=== PATIENT | male | born 1965 | race Caucasian/White ===

== ENCOUNTER 2023-05-22 14:35 | Inpatient (IN) | payer BC, SELFPAY ==
[2023-05-22 11:24] VITALS: BP 118/94
--- NOTE | 2023-05-22 11:28 | ED.GENMED ---
History of Present Illness
<Maria Isabel Mansfield PA-C - Last Filed: 05/22/23 15:07>
General
Chief Complaint: Abdominal Pain
Source: patient
Exam Limitations: none
Time Seen by Provider: 05/22/23 11:28
Nursing documentation reviewed up to this point in time: agreed with
Travel History
Have you had any contact with someone who has COVID-19?: No
Do you have any symptoms of coronavirus? Fever > 100 degrees, chills, cough, shortness of breath, sore throat, loss of taste or smell, muscle aches, or headache?: No
History of Present Illness
History of Present Illness:
This is a 57 y/o male with a PMH of cholelithiasis presenting to the ER today with diffuse abdominal pain and yellowing of the skin for the past 6 days. Patient states that he first noticed the pain after eating a meal. Patient states that he
currently has no pain, however he does get a lot of pain with eating which she states will linger for hours. Patient states that the pain will come very severe at times. Patient has associated nausea with this. He had a few episodes of vomiting 3
days ago. He has no diarrhea, no constipation, no chest pain, no shortness of breath, no back pain. Patient no history of abdominal surgeries. Patient denies any fevers or chills. His partner present in the room with him noticed that his skin
had a yellow hue starting yesterday. Patient takes no medications daily, has no allergies to any medications.
Past History
<Maria Isabel Mansfield PA-C - Last Filed: 05/22/23 15:07>
Past History
ED Past Medical History: None
ED Past Surgical History: None
Social History
Tobacco: Smoker
Review of Systems
<Maria Isabel Mansfield PA-C - Last Filed: 05/22/23 15:07>
Review of Systems
All Other Systems: ROS reviewed and negative except as documented in HPI and ROS
Phy Exam
<Maria Isabel Mansfield PA-C - Last Filed: 05/22/23 15:07>
Physical Exam
Physical Exam:
Vitals: Patient is tachycardic, other vital vital signs are stable
General: Patient is well-appearing, no acute
Skin: Jaundice, warm and dry, no rashes or lesions
Head: Normocephalic, atraumatic
Eyes: Scleral icterus noted bilaterally, PERRLA, no nystagmus
Cardiac: Regular rate and rhythm
Course
<Maria Isabel Mansfield PA-C - Last Filed: 05/22/23 15:07>
Orders/Labs/Results
Orders:
Orders
05/22/23 11:34
IV Insert/Care/Rem.- Treatment NOW
05/22/23 11:40
Complete Blood Count/With Diff Urgent
Comprehensive Metabolic Panel Urgent
Lipase Urgent
05/22/23 11:45
0.9% Sodium Chloride 1000 ml [Nss] 1,000 ml IV BOLUS
Ondansetron Injectable [Zofran] 4 mg IV NOW STA
05/22/23 11:54
US Abdomen Complete/Upper Urgent
Reason For Exam: right upper quadrant
05/22/23 11:56
Add On- LAB Urgent
Tests Added?: PT/INR
05/22/23 11:57
Add On- LAB Urgent
Tests Added?: PTT
05/22/23 12:07
PTT Routine
Comment: NO SPECIMEN TO ADD ON TO
Prothrombin Time Routine
Comment: PLEASE DRAW; NO LT BLUE TOP SPECIMEN TO ADD ON TO
05/22/23 14:23
Admit/Transfer Patient As Directed
Co-Sign Provider:
Level of Care: Inpatient admission
Assign to:: Telemetry
Physician / Group: Dr Palmer
Diagnosis: Gallstone pancreatitis
Reason for Telemetry: Arrhythmia
Date to Stop Telemetry: 05/25/23
Time to Stop Telemetry: 11:00
Reason for Hospitalization: pte p/w abd pain and elevated lft and lipase
Expected length of stay greater than two midnights?: Yes
ELOS- Estimated Length of Stay in days: 2
I certify the patient meets the requirements for IP care: Yes
05/22/23 14:24
Code Status As Directed
Resuscitation Status: Full Code
05/25/23 11:00
DC Protocol for Telemetry ONCE
Abnormal Lab Results
05/22/23
11:40
MPV 10.8 H fL
(7.4-10.4)
Abs Immat Gran (auto) 0.1 H 10^3/uL
(0-0.05)
Immature Gran % 0.7 H %
(0-0.5)
Lymphocytes % 19.7 L %
(20.5-51.1)
Carbon Dioxide 21 L mmol/L
(22-30)
Glucose 115 H mg/dl
(70-99)
Total Bilirubin 7.7 H mg/dl
(0.2-1.3)
AST 195 H U/L
(17-59)
ALT 237 H U/L
(0-50)
Alkaline Phosphatase 230 H U/L
(38-126)
Lipase 1664 H* U/L
(23-300)
05/22/23 11:40
05/22/23 11:40
Vital Signs
Initial and Last Documented VS:
Initial Vital Signs
Temp Pulse Resp BP Pulse Ox
98.2 F 114 16 118/94 97
05/22/23 11:24 05/22/23 11:24 05/22/23 11:24 05/22/23 11:24 05/22/23 11:24
Last Documented Vital Signs
Temp Pulse Resp BP Pulse Ox
98.2 F 84 19 121/76 95
05/22/23 11:24 05/22/23 12:15 05/22/23 12:15 05/22/23 12:00 05/22/23 12:15
<Kale Calvin, DO - Last Filed: 05/22/23 11:58>
Orders/Labs/Results
Orders:
Orders
05/22/23 11:34
IV Insert/Care/Rem.- Treatment NOW
05/22/23 11:40
Complete Blood Count/With Diff Urgent
Comprehensive Metabolic Panel Urgent
Lipase Urgent
05/22/23 11:45
0.9% Sodium Chloride 1000 ml [Nss] 1,000 ml IV BOLUS
Ondansetron Injectable [Zofran] 4 mg IV NOW STA
05/22/23 11:54
US Abdomen Complete/Upper Urgent
Reason For Exam: right upper quadrant
05/22/23 11:56
Add On- LAB Urgent
Tests Added?: PT/INR
05/22/23 11:57
Add On- LAB Urgent
Tests Added?: PTT
05/22/23 12:07
PTT Routine
Comment: NO SPECIMEN TO ADD ON TO
Prothrombin Time Routine
Comment: PLEASE DRAW; NO LT BLUE TOP SPECIMEN TO ADD ON TO
05/22/23 14:23
Admit/Transfer Patient As Directed
Co-Sign Provider:
Level of Care: Inpatient admission
Assign to:: Telemetry
Physician / Group: Dr Palmer
Diagnosis: Gallstone pancreatitis
Reason for Telemetry: Arrhythmia
Date to Stop Telemetry: 05/25/23
Time to Stop Telemetry: 11:00
Reason for Hospitalization: pte p/w abd pain and elevated lft and lipase
Expected length of stay greater than two midnights?: Yes
ELOS- Estimated Length of Stay in days: 2
I certify the patient meets the requirements for IP care: Yes
05/22/23 14:24
Code Status As Directed
Resuscitation Status: Full Code
05/25/23 11:00
DC Protocol for Telemetry ONCE
Abnormal Lab Results
05/22/23
11:40
MPV 10.8 H fL
(7.4-10.4)
Abs Immat Gran (auto) 0.1 H 10^3/uL
(0-0.05)
Immature Gran % 0.7 H %
(0-0.5)
Lymphocytes % 19.7 L %
(20.5-51.1)
Carbon Dioxide 21 L mmol/L
(22-30)
Glucose 115 H mg/dl
(70-99)
Total Bilirubin 7.7 H mg/dl
(0.2-1.3)
AST 195 H U/L
(17-59)
ALT 237 H U/L
(0-50)
Alkaline Phosphatase 230 H U/L
(38-126)
Lipase 1664 H* U/L
(23-300)
05/22/23 11:40
05/22/23 11:40
Vital Signs
Initial and Last Documented VS:
Initial Vital Signs
Temp Pulse Resp BP Pulse Ox
98.2 F 114 16 118/94 97
05/22/23 11:24 05/22/23 11:24 05/22/23 11:24 05/22/23 11:24 05/22/23 11:24
Last Documented Vital Signs
Temp Pulse Resp BP Pulse Ox
98.2 F 84 19 121/76 95
05/22/23 11:24 05/22/23 12:15 05/22/23 12:15 05/22/23 12:00 05/22/23 12:15
<Maria Isabel Mansfield PA-C - Last Filed: 05/22/23 15:07>
MDM/Problems Addressed
Differential Diagnosis Includes:
Differentials include choledocholithiasis, cholecystitis, gallstone pancreatitis, hemolytic anemia
MDM/Problems Addressed:
Abdominal pain, jaundice
Chronic conditions affecting care:
n/a
Acute Exacerbation and/or Progression of Chronic Illness:
n/a
<DWAYNE Geller Last Filed: 05/22/23 15:07>
*Pulse Oximetry
Patient hypoxic: no
*Critical Care Note
Total Time (30-74mins, 75-104mins- exclusive of procedures): Not Applicable
Data Reviewed
Review of Other/Old Records Reveals: Records (Reviewed ER physician documentation from 12/31/2022) and Discharge Summary (No hospital discharge summary in [facility] to review)
Source: patient and records
Prescriptions/Medications Considered But Not Given:
Considered occasion for pain, however patient has no pain at this time and denies any medication
<DWAYNE Geller Last Filed: 05/22/23 15:07>
Patient Management
Escalation/DeEscalation of care consider admission/obs:
This is a 57 y/o male with a PMH of cholelithiasis presenting to the ER today with diffuse abdominal pain and yellowing of the skin for the past 6 days. Patient states that he first noticed the pain after eating a meal. On exam, patient has some
mild abdominal tenderness palpation in the lower abdominal quadrants, as well as mild jaundice and scleral icterus. Patient labs reveal elevated LFTs, elevated lipase, elevated bili. His ultrasound reveals gallbladder stones, but no common bile
duct stones. Suspect patient has a gallstone pancreatitis.
Admit patient to the hospitalist. Patient accepted by hospitalist, patient aware of plan.
ED Attending Note
<Maria Isabel Mansfield PA-C - Last Filed: 05/22/23 15:07>
-
Portions of this chart may have been created with voice recognition software.� Occasional wrong word or��sound alike� substitutions may have occurred due to the inherent limitations of voice recognition software.
<Kale Calvin DO - Last Filed: 05/22/23 11:58>
ED Attending Note
Patient seen and examined by attending physician: Yes
I performed the substantive portion of visit, reviewed & personally made and approve the management plan that is documented in note by myself or BRO.: Yes
ED Attending Note:
I have seen and evaluated the patient with a [id number] encounter. I have spoken to the advance practicer provider and involved in the medical history, the physical exam, medical decision making.
Evaluation and management service: agree unless noted differently below.
Results interpretation: agree unless noted differently below.
Focused HPI: 57-year-old male presenting with jaundice since Saturday. Patient acknowledges that he has a history of gallstones. He was supposed to follow-up with surgery but never did. Patient complains of pain when he eats
Physical exam: Sitting in bed comfortably. Mild jaundice noted. No significant abdominal tenderness noted
Medical Decision Making: Given his history, discussed the concern for possible common bile duct stone. Will repeat ultrasound and ultimately admit for ERCP versus MRCP
Discharge Plan
Departure
Patient Disposition: Admit
Date of Disposition: 05/22/23
Time of Disposition: 13:35
Presentation/result/management discussed w/ accepting MD/DO: Hospitalist
Condition: Fair
Discharge Problem:
Gallstone pancreatitis
Interventions
Interventions:
*Risk Screen - Suicide Last Done: 05/22/23 11:24
*General Assessment Last Done: 05/22/23 11:24
*Neglect/Abuse Screening Last Done: 05/22/23 11:24
ED- Fall Risk Assessment Last Done: 05/22/23 12:00
UQ-Nagens-Rcaefitzwt Assessment Last Done: 05/22/23 12:00
[2023-05-22 11:47] VITALS: BP 127/80
[2023-05-22] MEDS: NSS 1000 IV (11:50)
[2023-05-22] MEDS: ZOFRAN 4 MG IV (11:55)
[2023-05-22 12:00] VITALS: BP 121/76
[2023-05-22 12:05] LABS: % Basophils 0.4 % (0-2); % Eosinophils 3.3 % (0-6); % Immature Granulocytes 0.7 % (0-0.5); % Lymphocytes 19.7 % (20.5-51.1); % Monocytes 6.5 % (1.7-9.3); % Neutrophils 69.4 % (42.2-75.2); Absolute Eosinophils 0.2 10^3/uL (0-0.7); Absolute Immature Granulocytes 0.1 10^3/uL (0-0.05); Absolute Lymphocytes 1.4 10^3/uL (1.2-3.4); Absolute Monocytes 0.5 10^3/uL (0.1-0.6); Hematocrit 42.5 % (39.0-52.0); Hemoglobin 14.8 g/dL (13.0-18.0); Mean Corp Hgb Conc. 34.8 g/dL (33.0-37.0); Mean Corpuscular Hgb 29.7 pg (27.0-31.0); Mean Corpuscular Volume 85.3 fL (80.0-94.0); Mean Platelet Volume 10.8 fL (7.4-10.4); Nucleated Red Blood Cells % 0 % (-); Platelet Count 218 10^3/uL (130-400); Red Blood Cell Count 4.98 10^6/uL (4.70-6.10); Red Cell Dist. Width 13.9 % (11.5-14.5); White Blood Cell Count 7.3 10^3/uL (4.8-10.8)
[2023-05-22 12:35] LABS: APTT 30.7 Sec (23.4-35.0); INR 0.99; PT 13.1 Sec (11.4-14.6)
[2023-05-22 12:43] LABS: ALT (SGPT) 237 U/L (0-50); AST (SGOT) 195 U/L (17-59); Albumin 4.1 g/dl (3.5-5.0); Alkaline Phosphatase 230 U/L (38-126); Blood Urea Nitrogen 20 mg/dl (9-20); Calcium 9.5 mg/dl (8.4-10.2); Carbon Dioxide 21 mmol/L (22-30); Chloride 103 mmol/L (98-107); Glucose 115 mg/dl (70-99); Lipase 1664 U/L (23-300); Sodium 135 mmol/L (135-145); Total Bilirubin 7.7 mg/dl (0.2-1.3); Total Protein 7.1 g/dl (6.3-8.2); eGFR > 60.00
--- NOTE | 2023-05-22 13:56 | HPS.HSE ---
Family Physician
-
Family Physician: Mike Singh
Chief Complaint
-
Abdominal pain
History of Present Illness
Patient 57-year-old male with no significant past medical history except for cholelithiasis, smoker, came into the hospital with abdominal pain. Patient has been having intermittent abdominal pain for several months but over the last several days
abdominal pain has been more intense and frequent. Patient describes abdominal pain moderate intensity associated with ingesting of meals associated with nausea and vomiting. He ate last evening around 6 PM and he has significant discomfort but
today he has avoided eating. He currently does not have abdominal pain in the ER. He does feel abdominal distention. He denies any change in bowel habits chest pain or shortness of breath. Denies any fevers or chills. He did notice that he has
been more yellowish in his skin. In the ED, LFTs elevated and lipase 1664, and ultrasound with foci of increased echogenicity in the gallstone with multiple gallstones and possible sludge. Gallstone appears thickened but negative sonographic
Weathers sign. He was referred to hospitalist for further evaluation.
Medical History
Past Medical History
Past Medical History: Reports Other (Cholelithiasis.)
Past Surgical History: Reports None
Social History
Tobacco: Smoker
Alcohol: Occasional
Drug: None
Family History
Family History: Not pertinent
Allergies / Home Medications
Allergies reflects when Allergies were last updated in [facility].
Home Medications with original date entered in [facility]
Allergy/Medication List:
Allergies
Allergy/AdvReac Type Severity Reaction Status Date / Time
No Known Allergies Allergy Verified 05/22/23 11:23
Home Medications
No Meds [No Current Medications] 05/22/23
Review of Systems
-
A 12 point ROS was completed and negative except as noted: Yes
Physical Exam
Vital Signs
Vital Signs
Temp Pulse Resp BP Pulse Ox
98.2 F 84 19 121/76 95
05/22/23 11:24 05/22/23 12:15 05/22/23 12:15 05/22/23 12:00 05/22/23 12:15
Physical exam:
General: Acutely ill
HEENT: Normocephalic, Atraumatic and Moist Mucous Membranes
Respiratory: Clear to Auscultation; Negative Wheezes, Rales or Rhonchi
Cardiac: Regular Rhythm and S1/S2
GI: Soft, mild tender on deep palpation, and distended. No rebound tenderness
Musculoskeletal: No Clubbing, No Cyanosis and No Edema
Neuro: Awake, Alert and Oriented
Psych: Calm
Physical Exam
General: Other
Laboratory Results
-
05/22/23 11:40
05/22/23 11:40
Laboratory Results
PT 13.1 Sec (11.4-14.6) 05/22/23 12:07
INR 0.99 05/22/23 12:07
APTT 30.7 Sec (23.4-35.0) 05/22/23 12:07
Total Bilirubin 7.7 mg/dl (0.2-1.3) H 05/22/23 11:40
AST 195 U/L (17-59) H 05/22/23 11:40
ALT 237 U/L (0-50) H 05/22/23 11:40
Alkaline Phosphatase 230 U/L (38-126) H 05/22/23 11:40
Lipase 1664 U/L (23-300) H* 05/22/23 11:40
Impression/Plan
-
IMPRESSION:
Patient 57-year-old male came into the hospital abdominal pain associated with increased LFTs and lipase consistent with acute gallstone pancreatitis. Patient at increased risk of morbidity and mortality therefore he will need to be treated in the
hospital and monitor progress accordingly.
Acute gallstone pancreatitis
Symptomatic cholelithiasis
Transaminitis
Smoker
PLAN:
Aggressive IV hydration, lactated Ringer at 150 mL/h
Pain control
Antiemetics as needed
Follow-up trend LFTs and lipase
Hold off on antibiotics but consider to start if fever or any signs of infection.
Surgery consulted ([place] texted surgery today)
GI consulted ([place] texted GI today)
I offered nicotine patch but patient declines.
Lovenox for DVT prophylaxis
CODE STATUS full code
Time spent 55 minutes.
[2023-05-22 15:30] VITALS: BP 132/85; BMI 31.4
--- NOTE | 2023-05-22 16:58 | CON.GI ---
Consultation
-
Date/Time Consultation Requested: 05/22/2023
Date/Time Consultation Performed: 05/22/2023
Performing Provider: Govind Gaytan
Reason for Consultation: cholelithiasis, elevated LFT
Medical History
Chief Complaint / HPI
Chief Complaint: cholelithiasis, elevated LFT
History of Present Illness:
The patient 57-year-old male with h/o cholelithiasis who p/w abdominal pain. He had significant abdominal pain associated with nausea/vomiting after eating today. He presented previously (about 6 months ago) with similar symptoms and was found to
have biliary pain. He currently does not have abdominal pain. He does feel abdominal distention. He denies any change in bowel habits chest pain or shortness of breath. Denies any fevers or chills. He did notice that he has been more yellowish
in his skin. In the ED, LFTs elevated and lipase 1664, and ultrasound with foci of increased echogenicity in the gallstone with multiple gallstones and possible sludge. Gallstone appears thickened but negative sonographic Weathers sign.
Past Medical History
Past Medical History: Other
Past Surgical History: None
Social History
Tobacco: Smoker
Alcohol: Occasional
Family History
Family History: Reviewed & Not Pertinent
Allergies / Home Medications
Allergy/AdvReac Type Severity Reaction Status Date / Time
No Known Allergies Allergy Verified 05/22/23 11:23
�Medication �Instructions �Recorded
No Meds [No Current Medications] 05/22/23
Review of Systems
Vital Signs
Temp Pulse Resp BP Pulse Ox
97.8 F 80 16 132/85 97
05/22/23 15:30 05/22/23 15:30 05/22/23 15:30 05/22/23 15:30 05/22/23 15:30
Physical Exam
Exam
General: Well Developed and Well Nourished
HEENT: Normocephalic
Respiratory: Clear and Wheezes
Cardiac: S1/S2 and Regular Rhythm
GI: Soft, Non Tender and Non Distended
Results
WBC 7.3 10^3/uL (4.8-10.8) 05/22/23 11:40
Hgb 14.8 g/dL (13.0-18.0) 05/22/23 11:40
Hct 42.5 % (39.0-52.0) 05/22/23 11:40
MCV 85.3 fL (80.0-94.0) 05/22/23 11:40
Plt Count 218 10^3/uL (130-400) 05/22/23 11:40
Absolute Neuts (auto) 5.0 10^3/uL (1.4-6.5) 05/22/23 11:40
PT 13.1 Sec (11.4-14.6) 05/22/23 12:07
INR 0.99 05/22/23 12:07
APTT 30.7 Sec (23.4-35.0) 05/22/23 12:07
Sodium 135 mmol/L (135-145) 05/22/23 11:40
Potassium 4.0 mmol/L (3.5-5.1) 05/22/23 11:40
Chloride 103 mmol/L (98-107) 05/22/23 11:40
Carbon Dioxide 21 mmol/L (22-30) L 05/22/23 11:40
BUN 20 mg/dl (9-20) 05/22/23 11:40
Creatinine 1.0 mg/dL (0.7-1.3) 05/22/23 11:40
Calcium 9.5 mg/dl (8.4-10.2) 05/22/23 11:40
Total Bilirubin 7.7 mg/dl (0.2-1.3) H 05/22/23 11:40
AST 195 U/L (17-59) H 05/22/23 11:40
ALT 237 U/L (0-50) H 05/22/23 11:40
Alkaline Phosphatase 230 U/L (38-126) H 05/22/23 11:40
Lipase 1664 U/L (23-300) H* 05/22/23 11:40
Diagnostic Image Results:
Prior GI Procedures:
EGD:
Colonoscopy:
Assessment / Plan
-
The patient 57-year-old male with h/o cholelithiasis and likely biliary pain who p/w abdominal pain.
Impression / Rec:
1. Abdominal pain - had abdominal pain associated with nausea/vomiting after eating. Had similar episode in 12/2022, found to have cholelithiasis, suspected of having biliary pain and referred to surgery for cholecystectomy but never followed up.
Lipase > 3 x ULN, now appears to have gallstone pancreatitis. LFT is elevated with bili of 7 and alk phos 230. US showed normal sized CBD. Intermediate risk for underlying CBD stone, recommend MRI/MRCP for further eval, keep NPO from midnight for
possible ERCP tomorrow. Surgery consult.
Total Time Spent with Patient (in minutes): 55
-
-
Thank you for consultation and allowing me to participate in the patient's care. Please call the federal mediation commissioner GI physician during the after hours with any questions or concerns.
[2023-05-22] MEDS: LOVENOX 40 MG SC (17:02)
[2023-05-22] MEDS: LR 1000 IV ×2 (17:04→23:42)
[2023-05-23] VITALS (8 sets, daily range): BP systolic 113–146; BP diastolic 69–88
--- NOTE | 2023-05-23 06:19 | PTCARENOTE ---
Patient refuse to have vitals taken this shift, threatened to remove tele monitor and IV fluids. Patient repeatedly stating he doesn't need anything. Patient is unpleasant and has no interest in any education that is offered, will continue plan of
care.
[2023-05-23 06:54] LABS: ALT (SGPT) 182 U/L (0-50); AST (SGOT) 122 U/L (17-59); Albumin 3.3 g/dl (3.5-5.0); Alkaline Phosphatase 181 U/L (38-126); Blood Urea Nitrogen 19 mg/dl (9-20); Calcium 8.8 mg/dl (8.4-10.2); Carbon Dioxide 22 mmol/L (22-30); Chloride 107 mmol/L (98-107); Estimated Creatinine Clearance > 125 ml/min; Glucose 74 mg/dl (70-99); Lipase 1643 U/L (23-300); Sodium 135 mmol/L (135-145); Total Bilirubin 4.6 mg/dl (0.2-1.3); eGFR > 60.00
[2023-05-23 06:58] LABS: % Basophils 0.6 % (0-2); % Eosinophils 3.8 % (0-6); % Immature Granulocytes 0.5 % (0-0.5); % Lymphocytes 24.3 % (20.5-51.1); % Monocytes 5.9 % (1.7-9.3); % Neutrophils 64.9 % (42.2-75.2); Absolute Eosinophils 0.2 10^3/uL (0-0.7); Absolute Lymphocytes 1.5 10^3/uL (1.2-3.4); Absolute Monocytes 0.4 10^3/uL (0.1-0.6); Absolute Neutrophils 4.1 10^3/uL (1.4-6.5); Hemoglobin 13.2 g/dL (13.0-18.0); Mean Corp Hgb Conc. 33.8 g/dL (33.0-37.0); Mean Corpuscular Hgb 29.5 pg (27.0-31.0); Mean Corpuscular Volume 87.2 fL (80.0-94.0); Mean Platelet Volume 11.3 fL (7.4-10.4); Nucleated Red Blood Cells % 0 % (-); Platelet Count 188 10^3/uL (130-400); Red Blood Cell Count 4.47 10^6/uL (4.70-6.10); Red Cell Dist. Width 13.9 % (11.5-14.5); White Blood Cell Count 6.3 10^3/uL (4.8-10.8)
[2023-05-23 07:00] LABS: Potassium 4.2 mmol/L (3.5-5.1)
--- NOTE | 2023-05-23 08:25 | W.PN.HOSP.TC ---
Today's Communication/Plan
-
IV fluids, pain control. ERCP today. Plan for antonio possible tomorrow.
Assessment / Plan
Assessment / Plan
Physical exam:
General: Acutely ill
HEENT: Normocephalic, Atraumatic and Moist Mucous Membranes
Respiratory: Clear to Auscultation; Negative Wheezes, Rales or Rhonchi
Cardiac: Regular Rhythm and S1/S2
GI: Soft, mild tender on deep palpation, and distended. No rebound tenderness
Musculoskeletal: No Clubbing, No Cyanosis and No Edema
Neuro: Awake, Alert and Oriented
Psych: Calm
A/P:
Acute gallstone pancreatitis
Symptomatic cholelithiasis
Transaminitis
Smoker
PLAN:
Status post ERCP 05/22 -->EUS showed stones and ERCP extracted. Also found gastric polyps s/p resection.
GI okay to do clear liquid diet today.
No need for MRCP.
Surgery consult appreciated.
Cont aggressive IV hydration, lactated Ringer at 150 mL/h
Pain control
Antiemetics as needed
Follow-up trend LFTs and lipase
Hold off on antibiotics but consider to start if fever or any signs of infection.
I offered nicotine patch but patient declines. He appears irritable and that might be contributing.
Discussed with at bedside
Lovenox for DVT prophylaxis
CODE STATUS full code
Anticipated Discharge: 24 - 48 hours
Subjective/Interval History
-
Date of Service: May 23, 2023
Apparently patient had a rough night. Patient denies abdominal pain but discomfort present. Afebrile.
Objective Data
-
Labs:
Laboratory Results
05/23/23
06:19
WBC 6.3
Hgb 13.2
Hct 39.0
Plt Count 188
Sodium 135
Potassium 4.2
Chloride 107
Carbon Dioxide 22
BUN 19
Creatinine 0.7
Glucose 74
Calcium 8.8
Total Bilirubin 4.6 H
AST 122 H
ALT 182 H
Alkaline Phosphatase 181 H
Vital Signs:
Vital Signs
Temp Pulse Resp BP Pulse Ox
97.3 F 65 16 140/88 95
05/23/23 07:00 05/23/23 07:00 05/23/23 07:00 05/23/23 07:00 05/23/23 07:00
I&O
05/22/23 05/23/23 05/24/23
06:59 06:59 06:59
Intake Total 480 / 480
Output Total 250 / 250
Balance 230 / 230
Review of Systems
-
All other systems: Reviewed and negative
--- NOTE | 2023-05-23 08:30 | CON.GS ---
Medical History
-
Chief Complaint: Epigastric pain
History of Present Illness:
Patient is a 57 yo M with a PMH of cholelithiasis who presents with approximately 7-10 days of epigastric abdominal discomfort as well as nausea and vomiting. Symptoms worsen with fatty food intake, notably after a big Mac and fries. Symptoms
became quite severe over the past 24 hours prompting presentation to the ED. He reports having 1 prior similar attack back in 12/2022. Symptoms resolved at that time and he elected to forego outpatient management. Currently his discomfort has
improved. Denies any fevers or chills. He reports jaundice, but denies pale stools or tea colored urine.
Past Medical History
Past Medical History: None
Past Surgical History: None
Social History
Tobacco: Smoker (02/26 PPD)
Alcohol: None
Drug: None
Personal:
Living: With Family
Employment: Employed ([employer])
Family History
Family History: Reviewed & Not Pertinent
Allergies / Home Medications
Allergy/AdvReac Type Severity Reaction Status Date / Time
No Known Allergies Allergy Verified 05/22/23 11:23
�Medication �Instructions �Recorded �Confirmed �Type
No Meds [No Current Medications] 05/22/23 05/22/23 History
Review of Systems
-
A 10 point review of systems was completed, and was negative except as per HPI.
Physical Exam
Vital Signs
Temp Pulse Resp BP Pulse Ox
97.3 F 65 16 140/88 95
05/23/23 07:00 05/23/23 07:00 05/23/23 07:00 05/23/23 07:00 05/23/23 07:00
05/22/23 05/23/23 05/24/23
06:59 06:59 06:59
Actual Weight 92.108 kg
Body Mass Index (BMI) 30.0
Lab Results
05/23/23 06:19
05/23/23 06:19
WBC 6.3 10^3/uL (4.8-10.8) 05/23/23 06:19
Hgb 13.2 g/dL (13.0-18.0) 05/23/23 06:19
Hct 39.0 % (39.0-52.0) 05/23/23 06:19
Plt Count 188 10^3/uL (130-400) 05/23/23 06:19
Abs Immat Gran (auto) 0.0 10^3/uL (0-0.05) 05/23/23 06:19
Neutrophils % 64.9 % (42.2-75.2) 05/23/23 06:19
Physical Exam
General: Well Developed, Well Nourished and No Apparent Distress
HEENT: Scleral Icterus
Respiratory: Non Labored Respirations
Cardiac: Regular Rhythm
GI: Soft, Non Tender, Distended (Mild), Obese and Other (Non-peritoneal)
Musculoskeletal: No Edema
Skin: Warm, Dry and Jaundice
Neuro: Nonfocal/Grossly Intact
Data Reviewed
-
Ultrasound: Image Personally Visualized and interpreted and Report Reviewed by me
Labs: Labs Reviewed by me
Old Records: Reviewed
Assessment / Plan
-
Patient is a 57 yo M p/w gallstone pancreatitis
The natural history and pathophysiology of biliary and stone disease was briefly discussed. Anatomy was reviewed. Role of cholecystectomy in preventing future episodes of cholecystitis, choledocholithiasis, gallstone pancreatitis were reviewed.
GI consult noted. Plan for EUS/ERCP today. Timing of cholecystectomy TBD based on recovery. All questions answered.
-- GI consult noted: per report plan for EUS/ERCP today
-- Timing of cholecystectomy TBD based on recovery
-- NPO, IVF
--- NOTE | 2023-05-23 10:11 | W.PN.UPDATE ---
Update Note
Progress Note Update
EUS showed CBD stone, ERCP extracted stones. CLD today, will need surgery consult for cholecystectomy. Also gastric polyp noted, resected. Will s/o.
[2023-05-23] MEDS: LR 1000 IV ×2 (11:06→19:05)
[2023-05-23] MEDS: LR IV (12:29)
[2023-05-23] MEDS: LOVENOX 40 MG SC (19:06)
[2023-05-24] VITALS (15 sets, daily range): BP systolic 30–142; BP diastolic 59–88
[2023-05-24] MEDS: LR 1000 IV ×2 (03:23→16:13)
[2023-05-24 06:42] LABS: % Basophils 0.2 % (0-2); % Eosinophils 0.1 % (0-6); % Immature Granulocytes 0.6 % (0-0.5); % Monocytes 3.7 % (1.7-9.3); % Neutrophils 78.4 % (42.2-75.2); Absolute Immature Granulocytes 0.1 10^3/uL (0-0.05); Absolute Lymphocytes 1.5 10^3/uL (1.2-3.4); Absolute Monocytes 0.3 10^3/uL (0.1-0.6); Absolute Neutrophils 6.7 10^3/uL (1.4-6.5); Hematocrit 39.4 % (39.0-52.0); Hemoglobin 13.3 g/dL (13.0-18.0); Mean Corp Hgb Conc. 33.8 g/dL (33.0-37.0); Mean Corpuscular Hgb 29.4 pg (27.0-31.0); Mean Corpuscular Volume 87.2 fL (80.0-94.0); Nucleated Red Blood Cells % 0 % (-); Platelet Count 214 10^3/uL (130-400); Red Blood Cell Count 4.52 10^6/uL (4.70-6.10); Red Cell Dist. Width 13.6 % (11.5-14.5); White Blood Cell Count 8.6 10^3/uL (4.8-10.8)
[2023-05-24 07:21] LABS: ALT (SGPT) 142 U/L (0-50); AST (SGOT) 77 U/L (17-59); Albumin 3.1 g/dl (3.5-5.0); Alkaline Phosphatase 160 U/L (38-126); Blood Urea Nitrogen 18 mg/dl (9-20); Calcium 8.7 mg/dl (8.4-10.2); Carbon Dioxide 22 mmol/L (22-30); Chloride 106 mmol/L (98-107); Estimated Creatinine Clearance > 125 ml/min; Glucose 103 mg/dl (70-99); Lipase 691 U/L (23-300); Potassium 4.6 mmol/L (3.5-5.1); Sodium 134 mmol/L (135-145); Total Bilirubin 3.3 mg/dl (0.2-1.3); Total Protein 5.8 g/dl (6.3-8.2); eGFR > 60.00
--- NOTE | 2023-05-24 08:46 | W.PN.HOSP.TC ---
Today's Communication/Plan
-
IV fluids. IV antibiotics. Postop care
Assessment / Plan
Assessment / Plan
Physical exam:
General: Acutely ill
HEENT: Normocephalic, Atraumatic and Moist Mucous Membranes
Respiratory: Clear to Auscultation; Negative Wheezes, Rales or Rhonchi
Cardiac: Regular Rhythm and S1/S2
GI: Soft, mild tender on deep palpation, and distended. No rebound tenderness
Musculoskeletal: No Clubbing, No Cyanosis and No Edema
Neuro: Awake, Alert and Oriented
Psych: Calm
A/P:
Acute gallstone pancreatitis
Symptomatic cholelithiasis
Transaminitis
Smoker
PLAN:
Status post ERCP 05/22 -->EUS showed stones and ERCP extracted. Also found gastric polyps s/p resection.
NPO again
Patient underwent cholecystectomy today on 05/23
Surgery started him on antibiotics today, IV Zosyn
No need for MRCP.
Surgery consult appreciated.
Cont aggressive IV hydration, lactated Ringer at 150 mL/h
Pain control
Antiemetics as needed
Follow-up trend LFTs and lipase--> LFTs is trending down and lipase from 1664 down to 691 today
I offered nicotine patch but patient declines. He appears irritable and that might be contributing.
Discussed with at bedside today
Lovenox for DVT prophylaxis
CODE STATUS full code
Anticipated Discharge: 24 - 48 hours
Subjective/Interval History
-
Date of Service: May 24, 2023
Patient with abdominal discomfort and abdominal distention. Afebrile
Objective Data
-
Labs:
Laboratory Results
05/24/23
06:25
WBC 8.6
Hgb 13.3
Hct 39.4
Plt Count 214
Sodium 134 L
Potassium 4.6
Chloride 106
Carbon Dioxide 22
BUN 18
Creatinine 0.7
Glucose 103 H
Calcium 8.7
Total Bilirubin 3.3 H
AST 77 H
ALT 142 H
Alkaline Phosphatase 160 H
Vital Signs:
Vital Signs
Temp Pulse Resp BP Pulse Ox
97.6 F 52 16 142/72 100
05/24/23 07:11 05/24/23 07:11 05/24/23 07:11 05/24/23 07:11 05/24/23 07:11
I&O
05/23/23 05/24/23 05/25/23
06:59 06:59 06:59
Intake Total 480 / 480 1490 / 1490
Output Total 250 / 250
Balance 230 / 230 1490 / 1490
--- NOTE | 2023-05-24 12:10 | CM ---
Reviewed chart, met with patient to obtain information for assessment however he was not in room. As this was the case, placed a call to patient's who answered and stated that she could talk.
She stated that patient is unemployed and lives at home with her, in a multistory home with 3 steps to enter. He is independent with his ADLs, personal care, dressing and bathing. He ambulates without device. He has no DME in his home.
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
He does not drive so his takes him to all of his appointments and does the shopping.
He has never had VN services.
He has not been to a SNF
Patient has a prescription plan and uses the [facility] in [place] for all of his medications.
Patient has never been to a SNF.
His provider is Dr. Mike Singh.
Patient's stated that she is an RN and confirmed that patient will be ok upon returning home.
Plan: Case management will continue to follow and assist with discharge planning. Home when stable.
--- NOTE | 2023-05-24 12:24 | W.IMMPOSTOP ---
Surgical Immed Post Op Note
-
Primary Surgeon: Rohan
Assisting: Pankaj FUCHS
Pre-op Diagnosis: Acute calculous cholecystitis
Post-op Diagnosis: Same
Procedure Performed: Laparoscopic cholecystectomy
Anesthesia Type: GETA
Specimen / Cultures: Gallbladder
Estimated Blood Loss: 50cc
Complications: None immediate
Operative Findings: Severely inflamed gallbladder with dense adhesions to colon, omentum, duodenum and stomach; Severely thickened wall; cystic duct encased in dense scar, able to control with clip. An area inferior to the clip appeared to tear
slightly from retraction, bile may leak from this area, however it was unsafe to dissect inferior to this location to better control the duct; 19fr june drain into the sub hepatic space
--- NOTE | 2023-05-24 12:27 | OR.RPT ---
Operative Report
Operative Report
Primary Surgeon: Rohan
Assisting: Pankaj FUCHS
Pre-op Diagnosis: Acute calculous cholecystitis
Post-op Diagnosis: Same
Procedure Performed: Laparoscopic cholecystectomy
Anesthesia Type: GETA
Specimen / Cultures: Gallbladder
Estimated Blood Loss: 50cc
Complications: None immediate
Operative Findings: Severely inflamed gallbladder with dense adhesions to colon, omentum, duodenum and stomach; Severely thickened wall; cystic duct encased in dense scar, able to control with clip. An area inferior to the clip appeared to tear
slightly from retraction, bile may leak from this area, however it was unsafe to dissect inferior to this location to better control the duct; 19fr june drain into the sub hepatic space
Date of Surgery: 05/24/23
Indications: This 57M developed right upper quadrant/epigastric pain and on workup was found to have choledocholithiasis. He underwent successful ERCP. Laparoscopic cholecystectomy was elected.
Description of procedure: The patient was placed on the operating table in the supine position. General anesthesia was induced. A time-out was completed verifying correct patient, procedure,
site, positioning, and special equipment prior to beginning this procedure. An orogastric tube was placed. The abdomen was prepped and draped in the usual sterile fashion. A stab incision was made in left upper quadrant and the Veress needle was
inserted. Proper position was confirmed by aspiration and saline meniscus test. The abdomen was insufflated with carbon dioxide to a pressure of 12 mmHg. The patient tolerated insufflation well.
A 5mm optical trocar was then inserted at the umbilicus. The laparoscope was inserted and the abdomen inspected. No injuries from initial trocar placement or Veress needle insertion were noted. Additional trocars were then inserted in the following
locations: a 12-mm trocar in the right epigastrium and two 5-mm trocars along the right costal margin. The abdomen was inspected and no abnormalities were found. The table was placed in the reverse Trendelenburg position with the right side up. The
gallbladder was encased in dense scar with attachments to colon, omentum, duodenum and stomach. These were carefully taken down with blunt sweeps and judicious electrocautery. The dome of the gallbladder was grasped with an atraumatic grasper and
retracted over the dome of the liver. The infundibulum was also grasped with an atraumatic grasper and retracted toward the right lower quadrant. The wall of the gallbladder ruptured at this point and bile and stones spilled, out. This maneuver
exposed Calot�s triangle. This area was encased in dense inflammatory scar tissue. The cystic duct was bluntly dissected out using the laparoscopic suction catheter. The duct was controlled with clips. Retracting the gallbladder cephalad appeared to
put significant tension on the duct and an area below our clip appeared to tear slightly. A scant amount of bilious fluid was identified in the area but was not clear if this was rundown from the gallbladder itself or leaking bile from the cystic
stump. The artery was encountered subsequently and controlled with clips and divided.
The gallbladder was then dissected from its peritoneal attachments by electrocautery. Hemostasis was assured and the gallbladder and contained stones were removed using an endoscopic retrieval bag placed through the subxiphoid port. Loose stones
were retrieved. The gallbladder was passed off the table as a specimen. The gallbladder fossa was copiously irrigated with saline and hemostasis was again assured. There was no evidence of bleeding from the gallbladder fossa or cystic artery or
leakage of the bile from the cystic duct stump at this time. A 19fr june drain was placed into the subhepatic space and secured to the skin with 2-0 nylon suture. The subxiphoid trocar site was closed at the fascial level laparoscopically with 2-0
PDS. Secondary trocars were removed under direct vision and noted to be hemostatic. The laparoscope was withdrawn and the umbilical trocar removed. The abdomen was allowed to collapse. The skin was closed with subcuticular sutures of 4-0 monocryl
and topical skin adhesive. The orogastric tube was removed.
The patient tolerated the procedure well and was taken to the postanesthesia care unit in stable condition.
[2023-05-24] MEDS: DILAUDID 0.25 MG IV ×2 (13:21→13:41)
--- NOTE | 2023-05-24 13:47 | SUR.PHASEI ---
Report to [facility] for lunch relief. Sawyer dawson RN BSN.
[2023-05-24] MEDS: ZOSYN 50 IV ×2 (16:13→22:20)
[2023-05-24] MEDS: LOVENOX 40 MG SC (17:52)
[2023-05-24] MEDS: LR IV (17:58)
[2023-05-24] MEDS: MORPHINE SULFATE 2 MG IV ×2 (19:40→23:56)
[2023-05-25] MEDS: LR 1000 IV (01:36)
[2023-05-25] MEDS: ZOSYN 50 IV ×2 (04:03→09:04)
[2023-05-25 07:30] VITALS: BP 124/76
--- NOTE | 2023-05-25 08:00 | W.PN.HOSP.TC ---
Today's Communication/Plan
-
Patient planning today
Assessment / Plan
Assessment / Plan
Physical exam:
General: Acutely ill
HEENT: Normocephalic, Atraumatic and Moist Mucous Membranes
Respiratory: Clear to Auscultation; Negative Wheezes, Rales or Rhonchi
Cardiac: Regular Rhythm and S1/S2
GI: Soft, mild tender on deep palpation, and distended. No rebound tenderness
Musculoskeletal: No Clubbing, No Cyanosis and No Edema
Neuro: Awake, Alert and Oriented
Psych: Calm
A/P:
Acute gallstone pancreatitis
Symptomatic cholelithiasis
Transaminitis
Smoker
PLAN:
Status post ERCP 05/22 -->EUS showed stones and ERCP extracted. Also found gastric polyps s/p resection.
Patient underwent cholecystectomy on 05/23. Surgery evaluated him on 05/24 and cleared him for discharge
Surgery started him on antibiotics today, IV Zosyn
No need for MRCP.
Surgery consult appreciated.
Cont aggressive IV hydration, lactated Ringer at 150 mL/h
Pain control
Antiemetics as needed
Follow-up trend LFTs and lipase--> LFTs is trending down and lipase from 1664 down to 691 today
I offered nicotine patch but patient declines. He appears irritable and that might be contributing.
Discussed with at bedside today
Lovenox for DVT prophylaxis
CODE STATUS full code
Anticipated Discharge: Today
Subjective/Interval History
-
Date of Service: May 25, 2023
Patient seen and examined. Feels better overall today
Objective Data
-
Labs:
Laboratory Results
05/25/23
06:00
WBC Pending
Hgb Pending
Hct Pending
Plt Count Pending
Sodium Pending
Potassium Pending
Chloride Pending
Carbon Dioxide Pending
BUN Pending
Creatinine Pending
Glucose Pending
Calcium Pending
Total Bilirubin Pending
AST Pending
ALT Pending
Alkaline Phosphatase Pending
Vital Signs:
Vital Signs
Temp Pulse Resp BP Pulse Ox
97.6 F 67 16 124/76 95
05/25/23 07:30 05/25/23 07:30 05/25/23 07:30 05/25/23 07:30 05/25/23 07:30
I&O
05/24/23 05/25/23 05/26/23
06:59 06:59 06:59
Intake Total 1490 / 1490 1476 / 1476
Output Total 265 / 265
Balance 1490 / 1490 1211 / 1211
[2023-05-25] MEDS: MORPHINE SULFATE 2 MG IV (09:07)
[2023-05-25 09:08] LABS: % Basophils 0.3 % (0-2); % Eosinophils 0.3 % (0-6); % Immature Granulocytes 0.7 % (0-0.5); % Lymphocytes 14.8 % (20.5-51.1); % Monocytes 5.3 % (1.7-9.3); % Neutrophils 78.6 % (42.2-75.2); Absolute Immature Granulocytes 0.1 10^3/uL (0-0.05); Absolute Lymphocytes 1.6 10^3/uL (1.2-3.4); Absolute Monocytes 0.6 10^3/uL (0.1-0.6); Absolute Neutrophils 8.4 10^3/uL (1.4-6.5); Hematocrit 36.6 % (39.0-52.0); Hemoglobin 12.4 g/dL (13.0-18.0); Mean Corp Hgb Conc. 33.9 g/dL (33.0-37.0); Mean Corpuscular Hgb 29.7 pg (27.0-31.0); Mean Corpuscular Volume 87.8 fL (80.0-94.0); Mean Platelet Volume 10.9 fL (7.4-10.4); Nucleated Red Blood Cells % 0 % (-); Platelet Count 235 10^3/uL (130-400); Red Blood Cell Count 4.17 10^6/uL (4.70-6.10); Red Cell Dist. Width 14.1 % (11.5-14.5); White Blood Cell Count 10.6 10^3/uL (4.8-10.8)
[2023-05-25 09:27] LABS: ALT (SGPT) 132 U/L (0-50); AST (SGOT) 82 U/L (17-59); Alkaline Phosphatase 123 U/L (38-126); Blood Urea Nitrogen 17 mg/dl (9-20); Calcium 8.2 mg/dl (8.4-10.2); Carbon Dioxide 25 mmol/L (22-30); Chloride 108 mmol/L (98-107); Estimated Creatinine Clearance 116 ml/min; Glucose 107 mg/dl (70-99); Lipase 1113 U/L (23-300); Potassium 4.2 mmol/L (3.5-5.1); Sodium 136 mmol/L (135-145); Total Bilirubin 1.9 mg/dl (0.2-1.3); Total Protein 5.4 g/dl (6.3-8.2); eGFR > 60.00
[2023-05-25 11:45] VITALS: BP 135/85
--- NOTE | 2023-05-25 12:22 | W.DCSUMMARY ---
Discharge Summary
Discharge Data
Date of Admission: 05/22/23
Date of Discharge: 05/25/23
-
Pending Results: No
Hospital Course
Patient 57-year-old male with no significant past medical history came to the hospital abdominal pain associated with increased LFTs and found to have gallstone pancreatitis. Patient was kept n.p.o., IV fluid, pain control. GI and surgery were
consulted. EUS ERCP was done on 05/21 and multiple stones extracted; also multiple gastric polyps s/p biopsy. Surgery took him for the OR on 05/23 and performed laparoscopic cholecystectomy. Surgeon placed him on antibiotics. Patient did well
postop. Surgery cleared him for discharge today. No other events were noticed. He is going to be discharged in stable condition today.
Discharge duration: 32 minutes
Discharge Plan
-
Patient Disposition: Home (Routine Discharge)
Discharge Diagnosis/Procedures: Acute gallstone pancreatitis. Cholelithiasis status post lap cholecystectomy.
Diet: Low Cholesterol
Additional Diets: If you notice loose stools in the coming weeks, eat a low fat diet
Activity: No strenuous activity
Additional Activity: Do not lift more than 20 lbs for the next 2-3 weeks
Driving Restrictions: No driving for 24 hours
Bathing Restrictions: OK to Shower
Blood Work: Please PCP to order CBC, CMP, lipase within 1 week
Wound Care: Ok to shower and wash your incisions with soap and water. Avoid scrubbing or picking off glue; it will fall off on its own in 2-3 weeks. Avoid soaking in tubs/swimming etc for 7 days
Activity Restrictions/Additional Instructions:
Call your surgeon if you have nausea with vomiting, worsening abdominal pain or a fever >100.5
Referrals:
Guillermo Madrigal MD [Active] - in two to four weeks
Mike Singh MD [Family Provider] - in less than 1 week
Prescriptions:
New
oxycodone 5 mg Tablet
5 mg PO Q4HPRN PRN (Reason: mod pain) Qty: 14 0RF
polyethylene glycol 3350 [Miralax] 17 gram/dose powder
4 g PO DAILY 7 Days Qty: 28 0RF
amoxicillin-pot clavulanate 875-125 mg tablet
1 tab PO Q12 Qty: 10 0RF
Discharge Orders:
Discharge Patient (As Directed); Ordered 05/25/23
Ordered By: Silviano Palmer
Discharge Date and Time
Discharge Date/Time: 05/25/23 14:12
Print Language: AUSTRALIAN
--- NOTE | 2023-05-25 13:35 | CM ---
Pt for d/c today
Pt reports he has ride home with his
Plan - home no needs
--- NOTE | 2023-05-25 14:53 | W.PN.GS2 ---
Addendum entered and electronically signed by Guillermo Madrigal MD 05/25/23 15:19:
I saw and examined the patient.
The [facility]'s note was reviewed and I agree with the note.
Comment: Pain controlled. No complaints. Drain output ss non bilious, drain removed. OK for DC home with 5 days augmentin PO
Original Note:
Today's Communication / Plan
-
Dispo planning
Assessment / Plan
-
57 yo male presenting with gallstone pancreatitis s/p ERCP for extraction of stones on 05/22 and laparoscopic cholecystectomy on 05/23 with severely inflamed gallbladder noted intraop
AFVSS
LFT's continue to improve, lipase mildly elevated but expected post procedure
Tolerating diet. Good pain control
--ANNIE removed at bedside
--Would transition to Po abx upon discharge x5 days
--Continue diet
--Ok for discharge from surgical standpoint, updated d/c instructions
Subjective Data
-
Date of Service: May 25, 2023
Patient seen and examined with Dr. Madrigal earlier today at approx 1030. Post op pain improving. Denies n/v. Tolerating diet. Eager to go home.
Objective Data
-
Intake and Output
05/24/23 05/25/23 05/26/23
06:59 06:59 06:59
Intake Total 1490 / 1490 1476 / 1476
Output Total 265 / 265
Balance 1490 / 1490 1211 / 1211
Intake:
Oral fluids 1440 / 1440 1326 / 1326
IV fluids (Total) 50 / 50 150 / 150
NSS 50 / 50
norm 150 / 150
Output:
Drain Output (Total) 265 / 265
Right Abdomen Lenny-Stevens 265 / 265
Other:
Number of approximated MODERATE 2 3
amounts of urine
Number of approximated LARGE 2 2
amounts of urine
Vital Signs
Temp Pulse Resp BP Pulse Ox
97.7 F 80 18 135/85 95
05/25/23 11:45 05/25/23 11:45 05/25/23 11:45 05/25/23 11:45 05/25/23 11:45
Lab Results
05/25/23 08:32
05/25/23 08:32
Calcium 8.2 mg/dl (8.4-10.2) L 05/25/23 08:32
Total Bilirubin 1.9 mg/dl (0.2-1.3) H D 05/25/23 08:32
AST 82 U/L (17-59) H 05/25/23 08:32
ALT 132 U/L (0-50) H 05/25/23 08:32
Alkaline Phosphatase 123 U/L (38-126) 05/25/23 08:32
Total Protein 5.4 g/dl (6.3-8.2) L 05/25/23 08:32
Albumin 3.0 g/dl (3.5-5.0) L 05/25/23 08:32
Physical Exam
-
NAD
ABD soft, NT, ND
Incisions clear, dry, intact glue. ANNIE with serous, nonbilious outputs
== END 2023-05-25 14:12 | disposition home or self-care (01) | DRG 417 ==
LOC: 3 WEST ACU 14:35
PROVIDERS: Physician Assistant; Surgery; ADMITTING PHYSICIAN Hospitalist; CONSULT PHYSICIAN Internal Medicine Gastroenterology; EMERGENCY PHYSICIAN Student in an Organized Health Care Education/Training Program; FAMILY PHYSICIAN Internal Medicine Geriatric Medicine; OTHER PHYSICIAN Surgery
PROC: BF131ZZ Fluoroscopy of Gallbladder and Bile Ducts using Low Osmolar Contrast (ICD-10-PCS; 2023-05-23)
PROC: 0FC98ZZ Extirpation of Matter from Common Bile Duct, Via Natural or Artificial Opening Endoscopic (ICD-10-PCS; 2023-05-23)
PROC: 0DB68ZX Excision of Stomach, Via Natural or Artificial Opening Endoscopic, Diagnostic (ICD-10-PCS; 2023-05-23)
PROC: 0DJ08ZZ Inspection of Upper Intestinal Tract, Via Natural or Artificial Opening Endoscopic (ICD-10-PCS; 2023-05-23)
PROC: 0FT44ZZ Resection of Gallbladder, Percutaneous Endoscopic Approach (ICD-10-PCS; 2023-05-24)
PROC: 0FN44ZZ Release Gallbladder, Percutaneous Endoscopic Approach (ICD-10-PCS; 2023-05-24)
DX: K80.62 Calculus of gallbladder and bile duct with acute cholecystitis without obstruction (principal); K85.10 Biliary acute pancreatitis without necrosis or infection; F17.210 Nicotine dependence, cigarettes, uncomplicated; R74.01 Elevation of levels of liver transaminase levels; R74.8 Abnormal levels of other serum enzymes; K31.7 Polyp of stomach and duodenum; K66.0 Peritoneal adhesions (postprocedural) (postinfection); B96.81 Helicobacter pylori [H. pylori] as the cause of diseases classified elsewhere
CPT/HCPCS: 88304; 74183; 74330; 76000; 76700; 80053; 83690; 85025; 85610; 85730; 88341; 88342; 96361; 96374; 99284; A9575; C1769

== ENCOUNTER → 2023-05-29 11:00 | Outpatient (REF) | payer BC, SELFPAY ==
[2023-05-29 11:38] LABS: % Eosinophils 2.2 % (0-6); % Immature Granulocytes 0.9 % (0-0.5); % Lymphocytes 21.8 % (20.5-51.1); % Monocytes 3.8 % (1.7-9.3); % Neutrophils 70.3 % (42.2-75.2); Absolute Basophils 0.1 10^3/uL (0-0.2); Absolute Eosinophils 0.2 10^3/uL (0-0.7); Absolute Immature Granulocytes 0.1 10^3/uL (0-0.05); Absolute Lymphocytes 2.2 10^3/uL (1.2-3.4); Absolute Monocytes 0.4 10^3/uL (0.1-0.6); Absolute Neutrophils 6.9 10^3/uL (1.4-6.5); Hematocrit 43.8 % (39.0-52.0); Mean Corp Hgb Conc. 34.2 g/dL (33.0-37.0); Mean Corpuscular Hgb 29.4 pg (27.0-31.0); Mean Corpuscular Volume 85.9 fL (80.0-94.0); Mean Platelet Volume 11.2 fL (7.4-10.4); Nucleated Red Blood Cells % 0 % (-); Platelet Count 324 10^3/uL (130-400); Red Cell Dist. Width 13.9 % (11.5-14.5); White Blood Cell Count 9.8 10^3/uL (4.8-10.8)
[2023-05-29 12:06] LABS: ALT (SGPT) 117 U/L (0-50); AST (SGOT) 84 U/L (17-59); Alkaline Phosphatase 120 U/L (38-126); Blood Urea Nitrogen 12 mg/dl (9-20); Calcium 9.6 mg/dl (8.4-10.2); Carbon Dioxide 20 mmol/L (22-30); Chloride 106 mmol/L (98-107); Direct Bilirubin 0.9 mg/dl (0.0-0.4); Glucose 118 mg/dl (70-99); Lipase 541 U/L (23-300); Potassium 4.6 mmol/L (3.5-5.1); Sodium 136 mmol/L (135-145); Total Bilirubin 1.1 mg/dl (0.2-1.3); Total Protein 6.8 g/dl (6.3-8.2); eGFR > 60.00
== END ==
LOC: REG 11:00
PROVIDERS: ATTENDING PHYSICIAN Surgery; FAMILY PHYSICIAN Internal Medicine Geriatric Medicine
DX: R10.84 Generalized abdominal pain (principal); Z90.49 Acquired absence of other specified parts of digestive tract
CPT/HCPCS: 36415; 80053; 82248; 83690; 85025